=== PATIENT | female | born 1950 | race Caucasian/White ===

== ENCOUNTER 2018-11-08 12:04 | Emergency (ER) | payer OTHER, MEDICAID ==
[~2018-11-08] VITALS: Ht 147.3 cm; Wt 78.5 kg
[2018-11-08 12:13] VITALS: BP 132/46; Ht 147.3 cm; Wt 78.5 kg
== END 2018-11-08 13:24 | disposition home or self-care (01) ==
LOC: ED 12:04
DX: E11.40 Type 2 diabetes mellitus with diabetic neuropathy, unspecified (principal); I10 Essential (primary) hypertension